=== PATIENT | female | born 2000 | race Hispanic/Latino ===

== ENCOUNTER 2020-11-16 23:22 | Emergency (ER) | payer BC ==
[~2020-11-16] VITALS: Ht 165.1 cm; Wt 113.0 kg
[2020-11-16] MEDS ORDERED: METFORMIN HCL1000 MG PO (23:48)
[2020-11-16] MEDS ORDERED: WELLBUTRIN XL300 MG PO (23:49)
[2020-11-16] MEDS ORDERED: AMOXICILLIN500 MG PO (23:50)
[2020-11-16] MEDS ORDERED: BIRTH CONTROL PILLS PO (23:50)
[2020-11-16] MEDS ORDERED: HYDROCO/APAP1 TA9 PO (23:53)
[2020-11-17 00:08] VITALS: BP 147/82
== END 2020-11-17 00:08 | disposition home or self-care (01) | DRG 159 ==
LOC: ED 23:22
DX: K04.7 Periapical abscess without sinus (principal); K02.9 Dental caries, unspecified; I10 Essential (primary) hypertension; E11.9 Type 2 diabetes mellitus without complications; F32.9 Major depressive disorder, single episode, unspecified; Z79.84 Long term (current) use of oral hypoglycemic drugs

== ENCOUNTER 2021-04-29 03:55 | Inpatient (IN) | payer MEDICAID ==
[~2021-04-29] VITALS: Ht 165.1 cm; Wt 112.0 kg
[~2021-04-29 03:55] MED LIST: AMOXICILLIN500 MG PO; BIRTH CONTROL PILLS PO; HYDROCO/APAP1 TA9 PO; METFORMIN HCL1000 MG PO; WELLBUTRIN XL300 MG PO
[2021-04-29 05:00] LABS: HEMATOCRIT 35.7 % (37.0-47.0); HEMOGLOBIN 10.8 g/dl (12.0-16.0); IMMATURE GRANULOCYTES 0.7 % (0.0-5.0); MEAN CELL VOLUME 79.5 fL CALC (80.0-100.0); MEAN CORPUSCULAR HGB 24.1 pG CALC (26.0-32.0); MEAN CORPUSCULAR HGB CONC 30.3 g/dL CAL (32.0-36.0); NEUT# 3.79 thou/uL (2.00-7.15); RED BLOOD COUNT 4.49 mill/uL (4.20-5.60); RED CELL DISTRI WIDTH 14.4 % (11.5-15.5)
[2021-04-29 05:07] LABS: URINE BLOOD DIPSTICK SMALL (NEGATIVE); URINE COLOR YELLOW; URINE GLUCOSE - DIPSTICK NEGATIVE (NEGATIVE); URINE KETONE 40 mg/dL (NEGATIVE); URINE PROTEIN - DIPSTICK >=300 mg/dL (NEG-TRACE); URINE SPECIFIC GRAVITY >=1.030
[2021-04-29 05:09] LABS: ALBUMIN 3.4 g/dL (3.2-5.0); ALKALINE PHOSPHATASE 73 u/l (38-126); ANION GAP 15 (6-22 (CALC)); BUN 8 mg/dL (7-17); BUN/CREATININE RATIO 16 (12-20 (CALC)); CARBON DIOXIDE 25 mmol/l (22-30); CHLORIDE 101 mmol/l (95-108); CREATININE 0.5 mg/dL (0.5-1.0); GFR > 60 ML/MIN (>=60 (CALC)); GFR FOR AFR.AMER. > 60 ML/MIN (>=60 (CALC)); POTASSIUM 3.9 mmol/l (3.5-5.1); SODIUM 137 mmol/l (137-146); TOTAL PROTEIN 7.2 g/dL (6.3-8.2)
[2021-04-29 05:15] LABS: BILIRUBIN, TOTAL 0.4 mg/dL (0.0-1.4); SGOT/AST 56 u/l (14-36)
[2021-04-29 05:16] LABS: URINE BILIRUBIN - DIPSTICK SMALL (NEGATIVE)
[2021-04-29 05:17] LABS: URINE BACTERIA MANY hpf; URINE EPITHELIAL CELLS MANY EPI/hpf (0-FEW); URINE LEUK ESTERASE NEGATIVE (NEGATIVE); URINE NITRITE - DIPSTICK NEGATIVE (Negative)
--- NOTE | 2021-04-29 05:20 | NUR ---
MOVED TO ROOM 15
[2021-04-29 05:21] LABS: MYOGLOBIN 39 ng/mL (0 - 62)
--- NOTE | 2021-04-29 06:40 | NUR ---
PATIENT TEARFUL. MOTHER AT BEDSIDE. EMOTIONAL SUPORT PROVIDED
--- NOTE | 2021-04-29 07:00 | NUR ---
REPORT RECEIVED FROM CAMRON ANDRADE.
--- NOTE | 2021-04-29 07:03 | NUR ---
IV TO LEFT AC INFILTRATED, PT REPORTS PAIN, SWELLING NOTED, NO REDNESS, IV DISCONTINUED AT THIS TIME.
--- NOTE | 2021-04-29 07:05 | NUR ---
REPORT GIVEN TO ONCOMING RN ALEKSANDER
--- NOTE | 2021-04-29 07:34 | NUR ---
ATTEMPTED TO CALL REPORT TO FLOOR, NO NURSE ASSIGNED, FLOOR TO CALL BACK.
--- NOTE | 2021-04-29 07:40 | NUR ---
PT AMBULATING TO BATHROOM WITHOUT DIFFICULTY.
--- NOTE | 2021-04-29 08:05 | NUR ---
REPORT GIVEN TO KAROLINA EVANS ON MEDSUR. PT ADMITTED TO ROOM 266
[2021-04-29 08:14] VITALS: BP 134/65
--- NOTE | 2021-04-29 08:15 | NUR ---
PT ARRIVED VIA WC FROM ER TO ROOM 266
--- NOTE | 2021-04-29 09:00 | NUR ---
REPORT RECEIVED FROM KAROLINA EVANS
--- NOTE | 2021-04-29 09:27 | NUR ---
AT BEDSIDE DISCUSSING POC
--- NOTE | 2021-04-29 11:30 | NUR ---
PT RESTING IN SEMI FOWLERS POSITION,A&O X3;VS OBTAINED AND ASSESSMENT COMPLETED;PT REPORTS SOB AND COUGH SINCE Monday04/23/21;PT DENIES ANY CURRENT PAIN OR DISCOMFORTS,PAIN SCALE AND REPORTING EDUCATED;RESPIRATIONS EVEN AND UNLABORED ON O2 @ 2L VIA NC, NON-PRODUCTIVE COUGH NOTED AT TIMES;ABDOMEN SOFT ON PALPATION AND ACTIVE IN ALL 4 QUADRANTS,LAST BM 04/29/21;STRONG PEDAL PULSES;SKIN INTACT;TELE MONITORING IN PLACE;#20G TO RFA FLUSHED AND PATENT,SITE APPEARS HEALTHY;ALLERGY BAND APPLIED LEFT ARM;PT REMAINS IN AIR/CONTACT PRECAUTIONS DUE TO COVID19 DX;PT DENIES ANY ADDITIONAL NEEDS AND IS ENCOURAGED TO CALL FOR ASSISTANCE IF NEEDED;FALL PRECAUTIONS IN PLACE WITH BED IN THE LOWEST POSITION AND CALL LIGHT IN REACH;WILL CONTINUE TO MONITOR
--- NOTE | 2021-04-29 12:15 | NUR ---
PT RESTING IN SEMI FOWLERS POSITION;RESPIRATIONS EVEN AND UNLABORED ON O2 @ 2L VIA NC;PT DENIES ANY CURRENT PAIN OR DISCOMFORTS;TELE MONITORING IN PLACE;IV SITE PATENT, ABX HUNG AT THIS TIME;ACCUCHECK 307, PT COVERED WITH SLIDING SCALE INSULIN PER ORDER;PT DENIES ANY ADDITIONAL NEEDS AND IS ENCOURAGED TO CALL FOR ASSISTANCE IF NEEDED;CALL LIGHT IN REACH;WILL CONTINUE TO MONITOR
[2021-04-29 13:21] VITALS: BP 134/84
[2021-04-29 15:40] VITALS: BP 135/76
--- NOTE | 2021-04-29 15:50 | NUR ---
PT RESTING IN SEMI FOWLERS POSITION;RESPIRATIONS EVEN AND UNLABORED ON O2 @ 2L VIA NC;PT DENIES ANY CURRENT PAIN OR DISCOMFORTS;IV SITE PATENT;TELE MONITORING IN PLACE;PT DENIES ANY CURRENT NEEDS AND IS ENCOURAGED TO CALL FOR ASSISTANCE IF NEEDED;FALL PRECAUTIONS REMAIN IN PLACE WITH BED IN THE LOWEST POSITION AND CALL LIGHT IN REACH;WILL CONTINUE TO MONITOR
--- NOTE | 2021-04-29 18:14 | NUR ---
PT O2 SATS 90% ON O2 @ 2L. PT O2 INCREASED TO 2.5L VIA NC.
[2021-04-29 18:37] VITALS: BP 131/72
--- NOTE | 2021-04-29 19:26 | NUR ---
REPORT RECIVED KAYCEE LYON, PATIENT CARE ASSUMED AT THIS TIME.
--- NOTE | 2021-04-29 21:30 | NUR ---
PATIENT RESTING COMFORTABLY IN BED. LYING IN THE PRONE POSITION. NO SHORTNESS OR BREATH OR CHEST PAIN NOTED OR REPORTED. LOVENOX AND SLIDING SCALE INSULIN ADMINISTERED, SEE EMAR. WILL CON'T TO MONITOR.
--- NOTE | 2021-04-29 23:21 | NUR ---
PATIENT OBSERVED USING INCETIVE SPIROMETER. CURRENTLY ON AIRBORN ISOLATION DUE TO COVD 19. PATIENT DENIES ANY CHEST PAIN AND/OR SHORTNESS OF BREATH. #20 IV PATENT IN RIGHT FOREARM. BREATH SOUNDS CLEAR. OXYGEN SATURATION AT 92% WITH 2.5 L VIA NASAL CANNULA.BOWEL SOUNDS ACTIVE IN ALL QUADRANTS, LAST BOWEL MOVEMENT REPORTED 04/29/21. PATIENT WOULD LIE TO CALL HER MOTHER AND IS INQUIRING ABOUT HER FAMILY MEMBER BRINGING SOME BELONGING. PATIENT REASSURED THIS NURSE WOULD CHECK FOR THEM AND BRING THEM IN. BELOGINGS TAKEN INTO ROOM BY TAYLOR GLEASON. WILL CON'T TO MONITOR.
[2021-04-30] VITALS (8 sets, daily range): BP systolic 97–132; BP diastolic 48–67
--- NOTE | 2021-04-30 04:20 | NUR ---
PATIENT CALL TO NURSES STATTION STATING SHE COULD NOT FEEL THE OXYGEN FLOW THROUGH HER CANULA, PATIENT DESATING AT 70% O2 SAT. UPON CLOSER INSPECTION NASAL CANULA EXTENSION HAD DISCONECTED, INCREASED TO 3L PATIENT SATS INCREASED, NOW READING 95% O2 SAT. WILL CON'T TO MONITOR.
--- NOTE | 2021-04-30 04:20 | NUR ---
PATIENT CALL TO NURSES STATTION STATING SHE COULD NOT FEEL THE OXYGEN FLOW THROUGH HER CANULA, PATIENT DESATING AT 70% O2 SAT. UPON CLOSER INSPECTION NASAL CANULA EXTENSION HAD DISCONECTED, PATIENT SATS INCREASED, NOW READING 95% OT SAT. WILL CON'T TO MONITOR.
[2021-04-30 05:55] LABS: HEMATOCRIT 36.6 % (37.0-47.0); HEMOGLOBIN 11.2 g/dl (12.0-16.0); IMMATURE GRANULOCYTES 0.7 % (0.0-5.0); MEAN CELL VOLUME 79.6 fL CALC (80.0-100.0); MEAN CORPUSCULAR HGB 24.3 pG CALC (26.0-32.0); MEAN CORPUSCULAR HGB CONC 30.6 g/dL CAL (32.0-36.0); NEUT# 5.52 thou/uL (2.00-7.15); RED BLOOD COUNT 4.6 mill/uL (4.20-5.60); RED CELL DISTRI WIDTH 14.1 % (11.5-15.5)
[2021-04-30 06:18] LABS: ALBUMIN 3.3 g/dL (3.2-5.0); ALKALINE PHOSPHATASE 72 u/l (38-126); ANION GAP 15 (6-22 (CALC)); BILIRUBIN, TOTAL 0.3 mg/dL (0.0-1.4); BUN 13 mg/dL (7-17); BUN/CREATININE RATIO 35 (12-20 (CALC)); C-REACTIVE PROTEIN 6.8 mg/dL (0-0.9); CARBON DIOXIDE 23 mmol/l (22-30); CHLORIDE 103 mmol/l (95-108); CREATININE 0.4 mg/dL (0.5-1.0); GFR > 60 ML/MIN (>=60 (CALC)); GFR FOR AFR.AMER. > 60 ML/MIN (>=60 (CALC)); POTASSIUM 4.5 mmol/l (3.5-5.1); SGOT/AST 45 u/l (14-36); SODIUM 137 mmol/l (137-146); TOTAL PROTEIN 7.1 g/dL (6.3-8.2)
--- NOTE | 2021-04-30 07:00 | NUR ---
RECIEVED REPORT FROM CAMRON MICHAELS
--- NOTE | 2021-04-30 08:19 | NUR ---
PT RESTING IN SEMI FOWLERS POSITION UPON ENTERING ROOM. PT IS A/O X3. ASSESSMENT AND VITALS COMPLETED. BP 124/54, HR 85, O2 93% ON 3L NC. RESPIRATIONS ARE EVEN AND UNLABORED WITH NO DISTRESS NOTED. EXCERTIONAL SOB NOTED. NONPRODUCTIVE COUGH NOTED.HEART RHYTHM NORMAL WITH TELE IN PLACE. BOWEL SOUNDS ARE ACTIVE. RADIAL AND PEDAL PULSES STRONG. #20G RFA FLUSHED, SITE APPEARS HEALTHY AND PATENT. PT DENIES OF ANY PAINS OR DISCOMFORTS AT THIS TIME. ACCUCHECK RESULTING IN 168, COVERAGE ADMINISTERED. PT TOLERATED WELL. SKIN INTACT. PT DENIES OF ANY PAINS OR DISCOMFORTS AT THIS TIME. ALL SAFETY PRECAUTIONS ARE IN PLACE WITH CALL LIGHT IN REACH. AIR/CONTACT PRECAUTIONS IN PLACE. WILL CONTINUE TO MONITOR.
--- NOTE | 2021-04-30 10:00 | NUR ---
PT COMPLAINS OF BURNING ATIV SITE.UNSUCCESSFUL X2 AT ATTEMPT. ADDITIONAL NURSE TO ATTEMPT.
--- NOTE | 2021-04-30 11:30 | NUR ---
NEW #20G RFA STARTED BY CAMRON GRULLON. SITE APPEARS HEALTHY AND PATENT. RESPIRATIONS ARE SHALLOW. PT STATES SHE GOT UP TO USE THE RESTROOM. 89% ON 3LNC. O2 INCREASED TO 5L NC, O2 92%. PT DENIES OF ANY PAINS OR DISCOMFORTS AT THIS TIME.ALL SAFETY PRECAUTIONS ARE IN PLACE WITH CALL LIGHT IN REACH.WILL CONTINUE TO MONITOR
--- NOTE | 2021-04-30 12:50 | NUR ---
RESPIRATIONS REMAINS EVEN AND UNLABORED.O2 96% ON 5L NC. O2 DECREASED TO 3L NC, O2 SAT 94%. PT STATES SHE DOES NOT FEEL SOB WHEN RESTING. #20G RFA INFUSING WITH IVF PER ORDER, SITE REMAINS HEALTHY AND PATENT. TELE MONITORING IN PLACE.PT REQUEST FOR FRESH FRIUTS. DIETARY CALLED. ALL SAFETY PRECAUTIONS ARE IN PLACE WITH CALL LIGHT IN REACH. WILL CONTINUE TO MONITOR.
--- NOTE | 2021-04-30 14:53 | NUR ---
PT STATES THAT NEW #20G RFA IN SORE. SITE APPEARS HEALTHY AND PATENT WHEN FLUSHED. CAMRON GRULLON ATTEMPTED NEW IV. PT STATED SHE WOULD "RATHER KEEP THE ONE SHE HAS NOW." #20G RFA APPEARS HEALTHY AND PATENT, SITE FREE OF REDNESS AND EDEMA. WILL CONTINUE TO MONITOR.
--- NOTE | 2021-04-30 16:03 | NUR ---
PT RESTING IN SEMI FOWLERS POSITION. RESPIRATIONS ARE EVEN AND UNLABORED WITH NO DISTRESS NOTED ON 2L NC SAT 96%. #20F RFA INFUSING WITH IVF ANTIBIOTICS, SITE REMAINS HEALTHY AND PATENT. PT STATES THAT AFTER HER SHOWER, SHE FEELS BETTER OVERALL. TELE MONITORING IN PLACE. PT DENIES OF ANY NEEDS AT THIS TIME. ALL SAFETY PRECAUTIONS ARE IN PLACE WITH CALL LIGHT IN REACH. WILL CONTINUE TO MONITOR.
--- NOTE | 2021-04-30 19:00 | NUR ---
REPORT RECEIVED FROM David ZAVALETA LPN, CARE OF PT ASSUMED AT THIS TIME.
--- NOTE | 2021-04-30 20:00 | NUR ---
POINT OF CARE GLUCOSE 330mg/dl. COLLECTED BY Marly ESCOBAR CNA.
--- NOTE | 2021-04-30 20:35 | NUR ---
PT LAYING IN BED IN PRONE POSITION, APPEARS TO BE SLEEPING COMFORTABLY AND IN NO DISTRESS. EYES CLOSED. RESPIRATIONS REGULAR AND UNLABORED. PT WAKES EASILY TO VERBAL STIMULI. PHYSICAL ASSESMENT COMPLETED. PT REPORTS SHE FEELS BETTER TODAY. NO SOB AT PRESENT. SPO2 97% ON 02 @ 2L/MIN VIA NC. LUNG SOUNDS CLEAR AND DIMINISHED IN BASES. TELE #[id number], SR-ST. R-FA #20G SL PATENT. PLAN OF CARE REVIEWED WITH PT. EDUCATION PROVIDED ON MEDICATIONS. PT VERBALIZES UNDERSTANDING OF PROVIDED EDUCATION AND VERBALIZES UNDERSTANDING AND AGREEMENT OF CARE PLAN. SCHEDULED MEDICATIONS AND SLIDING SCALE INSULIN COVERAGE ADMINISTERED. PRN ANTITUSSIVE AND APAP ADMINISTERED. SALTINE CRACKERS AND DIET TANISHA LUIS PROVIDED WITH INSTRUCTION TO TAKE WITH PO MEDICATIONS. PT REPORTS SHE FEELS WARM AND ASKS THERMOSTAT TO BE TURNED DOWN. THERMOSTAT ALREADY TURNED ALL THE WAY DOWN. TABLE FAN PROVIDED. PT DENIES FURTHER NEEDS AT THIS TIME. CALL US WITHIN REACH, AGREES TO CALL PRN.
--- NOTE | 2021-05-01 00:30 | NUR ---
PT APPEARS TO BE SLEEPING COMFORTABLY. LAYING IN BED WITH EYES CLOSED. RESPIRATIONS REGULAR AND UNLABORED. NO APPARENT DISTRESS. CALL US REMAINS WITHIN REACH.
[2021-05-01 03:43] VITALS: BP 98/41
[2021-05-01 06:22] LABS: HEMATOCRIT 35.9 % (37.0-47.0); HEMOGLOBIN 10.9 g/dl (12.0-16.0); IMMATURE GRANULOCYTES 0.5 % (0.0-5.0); MEAN CELL VOLUME 80.7 fL CALC (80.0-100.0); MEAN CORPUSCULAR HGB 24.5 pG CALC (26.0-32.0); MEAN CORPUSCULAR HGB CONC 30.4 g/dL CAL (32.0-36.0); NEUT# 3.44 thou/uL (2.00-7.15); RED BLOOD COUNT 4.45 mill/uL (4.20-5.60); RED CELL DISTRI WIDTH 14.2 % (11.5-15.5)
[2021-05-01 06:46] LABS: ALBUMIN 3.1 g/dL (3.2-5.0); ALKALINE PHOSPHATASE 63 u/l (38-126); ANION GAP 14 (6-22 (CALC)); BILIRUBIN, TOTAL 0.3 mg/dL (0.0-1.4); BUN 14 mg/dL (7-17); BUN/CREATININE RATIO 33 (12-20 (CALC)); CARBON DIOXIDE 25 mmol/l (22-30); CHLORIDE 101 mmol/l (95-108); CREATININE 0.4 mg/dL (0.5-1.0); GFR > 60 ML/MIN (>=60 (CALC)); GFR FOR AFR.AMER. > 60 ML/MIN (>=60 (CALC)); POTASSIUM 4.6 mmol/l (3.5-5.1); SGOT/AST 24 u/l (14-36); SODIUM 136 mmol/l (137-146); TOTAL PROTEIN 6.8 g/dL (6.3-8.2)
--- NOTE | 2021-05-01 07:00 | NUR ---
RECIEVED REPORT FROM CAMRON FONTANEZ
[2021-05-01 07:53] VITALS: BP 111/61
--- NOTE | 2021-05-01 07:53 | NUR ---
PT RESTING IN SEMI FOWLERS POSITION. PT IS A/O X3. ASSESSMENT AND VITALS COMPLETED. BP 111/61, HR 60, O2 91% ON 2L NC. RESPIRATIONS ARE EVEN AND UNLABORED WITH NO DISTRESS NOTED. LUNG SOUNDS ARE CLEAR.NONPRODUCTIVE COUGH NOTED. HEART RHYTHM NORMAL WITH TELE IN PLACE. BOWEL SOUNDS ARE ACTIVE. RADIAL AND PEDAL PULSES STRONG. #20G RFA FLUSHED, SITE APPEARS HEALTHY AND PATENT. SKIN INTACT. PT DENIES OF ANY PAINS OR DISCOMFORTS AT THIS TIME. ALL SAFETY PRECAUTIONS ARE IN PLACE WITH CALL LIGHT IN REACH. INSTRUCTED TO CALL FOR ASSISTANCE IF NEEDED.AIR/CONTACT PRECAUTIONS IN PLACE. WILL CONTINUE TO MONITOR.
--- NOTE | 2021-05-01 10:36 | NUR ---
DR CORTEZ AT BEDSIDE
[2021-05-01 10:50] VITALS: BP 115/66
--- NOTE | 2021-05-01 11:50 | NUR ---
PT RESTING IN SEMI FOWLERS POSITION. RESPIRATIONS ARE EVEN AND UNLABORED WITH NO DISTRESS NOTED ON 2L NC.#20G RFA REMAINS IN PLACE. TELE MONITORING IN PLACE. PT DENIES OF ANY PAINS OR DISCOMFORTS AT THIS TIME. ALL SAFETY PRECAUTIONS ARE IN PLACE WITH CALL LLIGHT IN REACH. WILL CONTINUE TO MONITOR.
[2021-05-01 14:38] VITALS: BP 121/64
--- NOTE | 2021-05-01 14:50 | NUR ---
O2 SAT 99% ON 2L NC. O2 REMOVED , O2 SAT REMAINS AT 98%. RESPIRATIONS EVEN AND UNLABORED. 2L NC AT BEDSIDE PRN. PT INSTRUCTED TO REAPPLY OF NEEDED. PT VERBALIZED UNDERSTANDING. WILL CONTINUE TO MONITOR.
--- NOTE | 2021-05-01 15:10 | NUR ---
REASSESSMENT OF O2 RESULTING IN 96% ON ROOM AIR. RESPIRATIONS ARE EVEN AND UNLABORED. 2L NC AT BEDSIDE PRN. WILL CONTINUE TO MOONITOR.
--- NOTE | 2021-05-01 15:38 | NUR ---
PT RESTING IN SEMI FOWLERS POSITION, PT STATES SHE JUST GOT BACK FROM USING THE BATHROOM. 2L NC REAPPLIED. RESPIRATIONS ARE SHALLOW. PT EDUCATED ON DEEP BREATHING.TELE MONITORING IN PLACE. PT DENIES OF ANY NEEDS AT THIS TIME. ALL SAFETY PRECAUTIONS ARE IN PLACE WITH CALL LIGHT IN REACH. WILL CONTINUE TO MONITOR.
[2021-05-01 19:00] VITALS: BP 120/53
--- NOTE | 2021-05-01 19:20 | NUR ---
REPORT GIVEN BY NICOLE. PATIENT RESTING IN BED WITH EYES CLOSED. RESP EVEN AND UNLABORED. NO S/S OF DISTRESS NOTED. FALL AND SAFTEY PRECAUTIONS IN PLACE. IV SALINE LOCKED. NSB/NSR ON TELE. PLAN OF CARE DISCUSSED. PATIENT INFORMED TO CALL WITH ANY QUESTIONS OR CONCERNS.
--- NOTE | 2021-05-01 22:04 | NUR ---
CALLED PLACED TO . PATIENT'S BLOOD GLUCOSE 412 PER LAB. NEW ORDERS GIVEN FOR LEVEMIR 10 UNITS HS DAILY. RBVO.
--- NOTE | 2021-05-01 23:27 | NUR ---
PATIENT RESTING WITH EYES CLOSED. RESP EVEN AND UNLABORED. NO S/S OF DISTRESS NOTED. FALL AND SAFTEY PRECAUTIONS IN PLACE.
[2021-05-01 23:30] VITALS: BP 108/48
--- NOTE | 2021-05-02 01:05 | NUR ---
ER TELE CALLED DUE TO PATIENT'S HEART RATE OF 38 BPM. CHECKED ON PATIENT. SHE WAS SOUNDLY SLEEPING. RESPONDED TO VOICE AND TOUCH WITHOUT PROBLEM AND WAS ABLE TO ANWSER QUESTIONS.
[2021-05-02 03:23] VITALS: BP 109/54
--- NOTE | 2021-05-02 03:58 | NUR ---
PATIENT RESTING WITH EYES CLOSED. RESP EVEN AND UNLABORED. NO S/S OF DISTRESS NOTED. FALL AND SAFTEY PRECAUTIONS IN PLACE.
[2021-05-02 04:56] LABS: HEMATOCRIT 36.3 % (37.0-47.0); IMMATURE GRANULOCYTES 0.4 % (0.0-5.0); MEAN CELL VOLUME 79.6 fL CALC (80.0-100.0); MEAN CORPUSCULAR HGB 24.1 pG CALC (26.0-32.0); MEAN CORPUSCULAR HGB CONC 30.3 g/dL CAL (32.0-36.0); NEUT# 3.84 thou/uL (2.00-7.15); RED BLOOD COUNT 4.56 mill/uL (4.20-5.60); RED CELL DISTRI WIDTH 14.1 % (11.5-15.5)
[2021-05-02 05:21] LABS: ALBUMIN 3.3 g/dL (3.2-5.0); ALKALINE PHOSPHATASE 64 u/l (38-126); ANION GAP 13 (6-22 (CALC)); BILIRUBIN, TOTAL 0.2 mg/dL (0.0-1.4); BUN 16 mg/dL (7-17); BUN/CREATININE RATIO 38 (12-20 (CALC)); C-REACTIVE PROTEIN 4.3 mg/dL (0-0.9); CARBON DIOXIDE 25 mmol/l (22-30); CHLORIDE 103 mmol/l (95-108); CREATININE 0.4 mg/dL (0.5-1.0); GFR > 60 ML/MIN (>=60 (CALC)); GFR FOR AFR.AMER. > 60 ML/MIN (>=60 (CALC)); POTASSIUM 4.2 mmol/l (3.5-5.1); SGOT/AST 18 u/l (14-36); SODIUM 136 mmol/l (137-146)
[2021-05-02 08:00] VITALS: BP 108/71
--- NOTE | 2021-05-02 08:05 | NUR ---
PATIENT IS RESTING IN BED. ASSESSMENT DONE. TELE IN PLACE. PATIENT IS ALERT AND ORIENT X3. PATIENT DENIES PAIN. PATIENT HAS A DRY COUGH AND DENIES SOB. PATIENT HAS O2 AT 2L VIA NC AND O2 IS 98%. PATIENT STATED SHE DID NOT USE THE ROBITUSSIN LAST NIGHT AND THE MEDICATION IS IN HER ROOM. NURSE DARLYN WASTE IT TODAY, BECAUSE PATIENT DID NOT WANT THE MEDICATION. PATIENT DENIES ANY OTHER NEEDS AT THIS TIME. CALL LIGHT IN REACH.
[2021-05-02 10:34] VITALS: BP 111/72
--- NOTE | 2021-05-02 12:03 | NUR ---
PATIENT IN BED RESTING. PATIENT IN ROOM AIR AND O2 IS 93%. PATIENT DENIES NEEDS AT THIS TIME. CALL LIGHT IN REACH.
--- NOTE | 2021-05-02 15:09 | NUR ---
PATIENT IS USING HER CELL PHONE WITH NO DISTRESS NOTED. PATIENT DENIES ANY NEEDS AT THIS TIME. CALL LIGHT IN REACH.
[2021-05-02 16:19] VITALS: BP 140/66
[2021-05-02 18:28] VITALS: BP 137/65
--- NOTE | 2021-05-02 20:30 | NUR ---
PT MEDICATED ORDERS PROVIDE AND ASSESSMENT COMPLETED AT THIS TIME. SHE IS SITTING UP IN THE BED W/LEGS CROSSED. DENIES SOB, CHEST PAIN, N/V/D. REPORTS FEELING TIRED OF BEING IN THAT ROOM. SHE DID ASK TO GET A SHOWER, ENTRY CLERK CALLED DOWN TO ASSIST AND COVER IV NEEDED. SITE FLUSHES PATENT, BUT W/RESISTANCE AT THIS TIME/SITE APPEARS HEALTY 22LH AT THIS TIME.
[2021-05-02 23:30] VITALS: BP 127/63
--- NOTE | 2021-05-03 00:07 | NUR ---
PT V/S ASSESSED, SHE WAS RESTING IN THE BED WITH LIGHTS AND TV LOW. NO S/O DISTRESS, DENIES ANY NEEDS AT THIS TIME. CALL LIGHT AT SIDE AND PT ENCOURAGED TO CALL NEEDS ARISE.
--- NOTE | 2021-05-03 03:12 | NUR ---
ED CALLED TO REPORT PT HR40. V/S ASSESSED AT THIS TIME. PT WAS SLEEPING SOUNDLY, DENIES ANY DISTRESSES. HR43 ON PORTABLE MONITOR. BP 112/53,OXYGEN SAT 96% ON RA, 96.9 TEMP.
[2021-05-03 03:14] VITALS: BP 112/53
[2021-05-03 05:46] LABS: ANION GAP 12 (6-22 (CALC)); BUN 18 mg/dL (7-17); BUN/CREATININE RATIO 38 (12-20 (CALC)); CARBON DIOXIDE 24 mmol/l (22-30); CHLORIDE 103 mmol/l (95-108); CREATININE 0.5 mg/dL (0.5-1.0); GFR > 60 ML/MIN (>=60 (CALC)); GFR FOR AFR.AMER. > 60 ML/MIN (>=60 (CALC)); SODIUM 135 mmol/l (137-146)
[2021-05-03 05:57] LABS: HEMATOCRIT 36.4 % (37.0-47.0); HEMOGLOBIN 11.2 g/dl (12.0-16.0); MEAN CELL VOLUME 79.5 fL CALC (80.0-100.0); MEAN CORPUSCULAR HGB 24.5 pG CALC (26.0-32.0); MEAN CORPUSCULAR HGB CONC 30.8 g/dL CAL (32.0-36.0); RED BLOOD COUNT 4.58 mill/uL (4.20-5.60); RED CELL DISTRI WIDTH 14.2 % (11.5-15.5)
[2021-05-03 07:58] VITALS: BP 131/57
--- NOTE | 2021-05-03 07:58 | NUR ---
PT SITTING IN BED. A&O X4. NO DISTRESS NOTED. PT CURRENTLY ON ROOM AIR, PER PT SHE HAS NOT BEEN ON ANY O2 SINCE YESTERDAY DURING THE DAY, NO SUPPLEMENTAL OXYGENATION NEEDED THROUGHOUT THE NIGHT. CURRENTLY 96% VIA ROOM AIR. CLEAR BREATH SOUNDS HEARD UPON AUSCULATION. PUBLIC OPINION SURVEY TAKER COUGH NOTED. ACTIVE BOWEL SOUNDS X4 QUADRANTS. #22 HEALTHY AND PATENT. CLUTCH INSPECTOR IN [facility], PT CURRENTLY SB AT 56 BPM. NO OTHER NEEDS AT THIS TIME. CALL LIGHT WITHIN REACH. DISCUSSED POC WITH PLANS OF 6 MIN WALK TEST. PT AGREEABLE.
[2021-05-03 10:31] VITALS: BP 98/60
[2021-05-03] MEDS ORDERED: ZITHROMAX250 MG PO (10:34)
[2021-05-03] MEDS ORDERED: DEXAMETHASON6 MG PO (10:34)
[2021-05-03] MEDS ORDERED: ASPIRIN 81 LOW81 MG PO (10:43)
--- NOTE | 2021-05-03 12:15 | NUR ---
PT IN BED. NO DISTRESS NOTED. PT'S CALL LIGHT WITHIN REACH.
[2021-05-03 15:15] VITALS: BP 144/65
--- NOTE | 2021-05-03 16:01 | NUR ---
Discharge instructions given. Patient verbalizes understanding of same. Discharged in stable condition via Wheelchair to Home with staff. All belongings sent with pt. PT EDUCATED ON OZEMPIC MEDICATION. PER PT SHE HAS TAKEN THIS MEDICATION BEFORE. PT INSTRUCTED TO SELF ISOLATE FOR 3-4 DAYS. EDUCATED ON THE IMPORTANCE OF FINISHING ANTIBIOTICS. ENCOURAGED TO RETURN IF NEW OR WORSEING SYMPTOMS.
== END 2021-05-03 16:01 | disposition home or self-care (01) | DRG 177 ==
LOC: ED 03:55 → ED-I 06:50 → ED 07:03 → MS2 07:04
PROVIDERS: Emergency Medicine; Hospitalist; Nurse Practitioner; ADMIT Internal Medicine; ATTEND Internal Medicine
PROC: XW033E5 Introduction of Remdesivir Anti-infective into Peripheral Vein, Percutaneous Approach, New Technology Group 5 (ICD-10-PCS; principal; 2021-04-29)
DX: U07.1 COVID-19 (principal); J12.82 Pneumonia due to coronavirus disease 2019; N39.0 Urinary tract infection, site not specified; R09.02 Hypoxemia; I10 Essential (primary) hypertension; E11.65 Type 2 diabetes mellitus with hyperglycemia; T38.0X5A Adverse effect of glucocorticoids and synthetic analogues, initial encounter; F32.9 Major depressive disorder, single episode, unspecified; Z79.84 Long term (current) use of oral hypoglycemic drugs
CPT/HCPCS: J1650; Q9967

== ENCOUNTER 2024-08-05 17:30 | Emergency (ER) | payer OTHER ==
[~2024-08-05] VITALS: Ht 165.1 cm; Wt 72.5 kg
[~2024-08-05 17:30] MED LIST changes: +ASPIRIN 81 LOW81 MG PO; +DEXAMETHASON6 MG PO; +JARDIANCE10 MG PO; +MOUNJARO5 MG IM; +PROMETHAZINE HY25 M1 PO; +ZITHROMAX250 MG PO
[2024-08-05 17:52] VITALS: BP 152/95
[2024-08-05 18:01] VITALS: BP 160/92
[2024-08-05] MEDS ORDERED: NAPROXEN500 MG PO (18:02)
[2024-08-05] MEDS ORDERED: KETOROLAC TROMETHAMINE 30 MG/ML SDV IM ONE (18:05)
[2024-08-05 18:42] VITALS: BP 141/90
[2024-08-05 18:50] VITALS: BP 141/90
== END 2024-08-05 18:44 | disposition home or self-care (01) | DRG 552 ==
LOC: ED 17:30
DX: M54.50 Low back pain, unspecified (principal); I10 Essential (primary) hypertension; E11.9 Type 2 diabetes mellitus without complications; F32.A Depression, unspecified; Z79.84 Long term (current) use of oral hypoglycemic drugs